=== PATIENT | female | born 1980 | race Caucasian/White ===

== ENCOUNTER 2017-03-30 16:15 | Emergency (ER) | payer MEDICAID, OTHER ==
[~2017-03-30] VITALS: Ht 165.1 cm; Wt 86.0 kg
[2017-03-30 16:29] VITALS: BP 147/87
== END 2017-03-30 21:04 | disposition left against medical advice (07) ==
LOC: ER 16:15
DX: R07.9 Chest pain, unspecified (principal); Z53.21 Procedure and treatment not carried out due to patient leaving prior to being seen by health care provider